=== PATIENT | female | born 2005 | race Caucasian/White ===

== ENCOUNTER 2024-08-19 21:43 | Emergency (ER) | payer OTHER | END 2024-08-19 22:40 | disposition home or self-care (01) | LOC: ED 21:43 | DX: S99.912A Unspecified injury of left ankle, initial encounter (principal); Z88.6 Allergy status to analgesic agent; Z88.8 Allergy status to other drugs, medicaments and biological substances; V03.99XA Pedestrian with other conveyance injured in collision with car, pick-up truck or van, unspecified whether traffic or nontraffic accident, initial encounter; Y93.89 Activity, other specified; Y92.89 Other specified places as the place of occurrence of the external cause; Y99.8 Other external cause status ==